=== PATIENT | male | born 1995 | race Caucasian/White ===

== ENCOUNTER → 2016-07-07 | Outpatient (CLI) | payer BC ==
[~2016-07-07] MED LIST: ASPI81TA2 PO; LIDOCAINE 1% (10mg/ml) 30ml SDV ONE
--- NOTE | 2016-07-08 11:14 | CVPROF ---
DATE OF PROCEDURE July 07, 2016 HISTORY The patient is a 20-year-old gentleman with history of syncope and was referred for LINQ deployment for further evaluation. Informed consent was obtained after explaining the procedure and the potential risks to the patient and parents who did agree to proceed with the procedure. PROCEDURE 1. LINQ loop recorder implantation. TECHNIQUE He was prepped and draped in the usual sterile techniques. 1% lidocaine was used for local anesthesia. Using the blade of the LINQ device we were able to make an incision in the left pectoral area. The LINQ delivery plunger was advanced in subcutaneously into the left pectoral area. The LINQ was deployed without any difficulty and the plunger device was removed. The patient tolerated the procedure well with no complications. IMPRESSION 1. Successful LINQ loop recorder device implant. PLAN Will monitor the device for arrhythmias. LISA
== END ==
LOC: CATH.INJ 12:20
PROVIDERS: ATTEND Internal Medicine Cardiovascular Disease
DX: R55 Syncope and collapse (principal); G45.9 Transient cerebral ischemic attack, unspecified; R06.02 Shortness of breath; F12.90 Cannabis use, unspecified, uncomplicated; Z79.82 Long term (current) use of aspirin; Z82.3 Family history of stroke; Z82.49 Family history of ischemic heart disease and other diseases of the circulatory system
CPT/HCPCS: 33282; C1764; 93458